=== PATIENT | male | born 1985 | race African-American/Black ===

== ENCOUNTER 2016-11-17 17:03 | Inpatient (IN) | payer MEDICAID ==
[~2016-11-17] VITALS: Ht 193 cm; Wt 92.1 kg
[2016-11-17] MEDS ORDERED: ACETAMINOPHEN 325MG TABLET PO STA (17:29)
[2016-11-17] MEDS ORDERED: SODIUM CHLORIDE 0.9% 1000ML BAG (SEPSIS BOLUS) IV ONE (17:30)
[2016-11-17 18:26] LABS: CLARITY URINE TURBID (CLEAR); COLOR URINE ORANGE (YELLOW); GLUCOSE URINE TRACE (NEGATIVE); KETONES URINE NEGATIVE (NEGATIVE); LEUKOCYTE ESTERASE URINE 1+ (NEGATIVE); NITRITE URINE POSITIVE (NEGATIVE); OCCULT BLOOD URINE 3+ (NEGATIVE); PROTEIN URINE 3+ (NEGATIVE); SPECIFIC GRAVITY URINE 1.031 (1.005-1.030); UROBILINOGEN URINE 0.2 E.U./dL (0.2-1.0)
[2016-11-17] MEDS ORDERED: CEFTRIAXONE 1 G PREMIX 50 ML IV ONE (19:00)
[2016-11-17 19:18] LABS: CHLORIDE 95 mEq/L (98-107); INR 2.5; PROTHROMBIN TIME 26.3 sec
[2016-11-17 19:22] LABS: HEMATOCRIT. 46.9 % (42.0-52.0); HEMOGLOBIN. 16.1 g/dL (14.0-18.0); MEAN CORPUSCULAR HEMOGLOBIN 30.6 pg (28.0-32.0); MEAN CORPUSCULAR VOLUME 89.4 fL (80.0-94.0); MEAN PLATELET VOLUME 11.2 fl (7.4-10.4); PLATELET 125 x1000/uL (130-400); RED BLOOD CELL COUNT 5.25 mill/uL (4.7-6.1); RED CELL DISTRIBUTION WIDTH 14.1 % (11.6-14.6)
[2016-11-17 19:23] LABS: CARBON DIOXIDE 24 mEq/L (21-32)
[2016-11-17 20:00] LABS: PLATELET ESTIMATE SLIGHTLY DECREASED
[2016-11-17] MEDS ORDERED: ONDANSETRON HCL 4MG/2ML VIAL IV ONE (20:00)
[2016-11-17] MEDS ORDERED: ACETAMINOPHEN 325MG TABLET PO ONE (20:45)
[2016-11-17 23:02] VITALS: BP 125/80
[2016-11-18] VITALS (7 sets, daily range): BP systolic 104–141; BP diastolic 59–80
[2016-11-18] MEDS ORDERED: ONDANSETRON HCL 4MG/2ML VIAL IV PRN (02:00)
[2016-11-18] MEDS: SODIUM CHLORIDE 0.9% 1,000 ML IV SCH ×3 (03:24→18:27)
[2016-11-18] MEDS: MORPHINE SULFATE 2 MG/ML CPJ (NOT FOR IM USE) IV PRN ×3 (03:35→20:36)
[2016-11-18] MEDS: METRONIDAZOLE 500 MG PREMIX 100 ML IV SCH ×3 (03:36→18:28)
[2016-11-18] MEDS: LEVOFLOXACIN 500MG PREMIX 100 ML IV SCH (04:35)
[2016-11-18 06:00] LABS: HEMATOCRIT. 45.9 % (42.0-52.0); HEMOGLOBIN. 15.8 g/dL (14.0-18.0); MEAN CORPUSCULAR HEMOGLOBIN 30.7 pg (28.0-32.0); MEAN CORPUSCULAR VOLUME 89.2 fL (80.0-94.0); MEAN PLATELET VOLUME 11.8 fl (7.4-10.4); PLATELET 106 x1000/uL (130-400); RED BLOOD CELL COUNT 5.15 mill/uL (4.7-6.1); RED CELL DISTRIBUTION WIDTH 13.9 % (11.6-14.6)
[2016-11-18] MEDS ORDERED: POTASSIUM CHLORIDE 20MEQ TABLET SR PO NR (08:00)
[2016-11-18] MEDS: ACETAMINOPHEN 325MG TABLET PO PRN (08:31)
[2016-11-18] MEDS: PANTOPRAZOLE SODIUM 40 MG/VIAL IV SCH (08:31)
[2016-11-18] MEDS: CEFEPIME 1,000 MG in DEXTROSE 5% WATER 50 ML IV SCH (11:18)
[2016-11-18 11:31] LABS: HEPATITIS B SURFACE ANTIGEN NEGATIVE
[2016-11-18 12:00] LABS: HEPATITIS B CORE AB IGM NEGATIVE
[2016-11-18 12:01] LABS: HEPATITIS A AB IGM NEGATIVE (NEGATIVE)
[2016-11-18 12:55] LABS: CREATINE KINASE 2919 IU/L (39-308)
[2016-11-18 13:31] LABS: PLATELET ESTIMATE SLIGHTLY DECREASED
[2016-11-18] MEDS ORDERED: CEFEPIME HCL 1000MG/VIAL INJ IM SCH (21:00)
[2016-11-18] MEDS: METOCLOPRAMIDE HCL 10MG/2ML VIAL IV PRN (23:12)
[2016-11-19] VITALS (13 sets, daily range): BP systolic 113–153; BP diastolic 45–100
[2016-11-19] MEDS ORDERED: ONDANSETRON HCL 4MG/2ML VIAL IV PRN
[2016-11-19] MEDS: CEFEPIME 1,000 MG in DEXTROSE 5% WATER 50 ML IV SCH ×3 (00:12→23:01)
[2016-11-19] MEDS: SODIUM CHLORIDE 0.9% 1,000 ML IV SCH ×3 (01:38→18:00)
[2016-11-19] MEDS: METRONIDAZOLE 500 MG PREMIX 100 ML IV SCH ×3 (02:37→18:55)
[2016-11-19] MEDS: LEVOFLOXACIN 500MG PREMIX 100 ML IV SCH (03:47)
[2016-11-19] MEDS: MORPHINE SULFATE 2 MG/ML CPJ (NOT FOR IM USE) IV PRN ×2 (08:08→20:20)
[2016-11-19] MEDS: PANTOPRAZOLE SODIUM 40 MG/VIAL IV SCH (08:08)
[2016-11-19 08:49] LABS: HEMOGLOBIN. 13.3 g/dL (14.0-18.0); MEAN CORPUSCULAR HEMOGLOBIN 30.3 pg (28.0-32.0); MEAN CORPUSCULAR VOLUME 89.1 fL (80.0-94.0); MEAN PLATELET VOLUME 12.2 fl (7.4-10.4); PLATELET 97 x1000/uL (130-400); RED BLOOD CELL COUNT 4.38 mill/uL (4.7-6.1); RED CELL DISTRIBUTION WIDTH 14.1 % (11.6-14.6)
[2016-11-19 09:02] LABS: CHLORIDE 99 mEq/L (98-107)
[2016-11-19 09:15] LABS: CARBON DIOXIDE 25 mEq/L (21-32)
[2016-11-19 10:14] LABS: PLATELET ESTIMATE DECREASED
[2016-11-19] MEDS: ACETAMINOPHEN 325MG TABLET PO PRN (11:33)
[2016-11-19] MEDS ORDERED: POTASSIUM CHLORIDE 20MEQ TABLET SR PO SCH (15:45)
[2016-11-20] VITALS (12 sets, daily range): BP systolic 95–158; BP diastolic 41–90
[2016-11-20] MEDS: LEVOFLOXACIN 500MG PREMIX 100 ML IV SCH (02:17)
[2016-11-20] MEDS: METRONIDAZOLE 500 MG PREMIX 100 ML IV SCH ×3 (03:14→19:00)
[2016-11-20] MEDS: SODIUM CHLORIDE 0.9% 1,000 ML IV SCH ×2 (05:10→15:45)
[2016-11-20 05:17] LABS: INR 1.2; PARTIAL THROMBOPLASTIN TIME 28.9 sec (24.0-34.0); PROTHROMBIN TIME 12.9 sec
[2016-11-20 05:32] LABS: BASOPHILS % 0.6 % (0.0-2.0); EOSINOPHILS % 4.2 % (0.0-5.0); HEMATOCRIT. 37.5 % (42.0-52.0); HEMOGLOBIN. 12.9 g/dL (14.0-18.0); LYMPHOCYTES % 13.4 % (20.0-50.0); MEAN CORPUSCULAR HEMOGLOBIN 30.6 pg (28.0-32.0); MEAN CORPUSCULAR VOLUME 88.7 fL (80.0-94.0); MEAN PLATELET VOLUME 12.4 fl (7.4-10.4); NEUTROPHILS % 73.8 % (40.0-76.0); PLATELET 112 x1000/uL (130-400); RED BLOOD CELL COUNT 4.23 mill/uL (4.7-6.1); RED CELL DISTRIBUTION WIDTH 14.4 % (11.6-14.6)
[2016-11-20 06:28] LABS: CARBON DIOXIDE 29 mEq/L (21-32); CHLORIDE 99 mEq/L (98-107)
[2016-11-20 06:55] LABS: CREATINE KINASE 1316 IU/L (39-308)
[2016-11-20] MEDS: PANTOPRAZOLE SODIUM 40 MG/VIAL IV SCH (08:31)
[2016-11-20] MEDS: METOCLOPRAMIDE HCL 10MG/2ML VIAL IV PRN (10:23)
[2016-11-20 11:50] LABS: *AMPHETAMINES SCREEN URINE NEGATIVE (NEGATIVE); *BARBITURATES SCREEN URINE NEGATIVE (NEGATIVE); *BENZODIAZEPINES SCREEN URINE NEGATIVE (NEGATIVE); *COCAINE SCREEN URINE NEGATIVE (NEGATIVE); CANNABINOID URINE SCREEN PRESUMTIVE POSITIVE (NEGATIVE); METHADONE URINE SCREEN NEGATIVE (NEGATIVE); OPIATES URINE SCREEN PRESUMTIVE POSITIVE (NEGATIVE); PHENCYCLIDINE URINE SCREEN NEGATIVE (NEGATIVE)
[2016-11-20] MEDS: CEFEPIME 1,000 MG in DEXTROSE 5% WATER 50 ML IV SCH ×2 (12:29→23:56)
[2016-11-21] VITALS (11 sets, daily range): BP systolic 114–157; BP diastolic 54–97
[2016-11-21] MEDS: LEVOFLOXACIN 500MG PREMIX 100 ML IV SCH (03:27)
[2016-11-21] MEDS: SODIUM CHLORIDE 0.9% 1,000 ML IV SCH ×2 (03:33→11:11)
[2016-11-21] MEDS: METRONIDAZOLE 500 MG PREMIX 100 ML IV SCH ×2 (04:04→11:13)
[2016-11-21 06:44] LABS: HEMATOCRIT. 36.3 % (42.0-52.0); HEMOGLOBIN. 12.4 g/dL (14.0-18.0); MEAN CORPUSCULAR HEMOGLOBIN 30.6 pg (28.0-32.0); MEAN CORPUSCULAR VOLUME 89.6 fL (80.0-94.0); MEAN PLATELET VOLUME 11.5 fl (7.4-10.4); PLATELET 155 x1000/uL (130-400); RED BLOOD CELL COUNT 4.05 mill/uL (4.7-6.1); RED CELL DISTRIBUTION WIDTH 14.3 % (11.6-14.6)
[2016-11-21 06:56] LABS: CARBON DIOXIDE 30 mEq/L (21-32); CHLORIDE 99 mEq/L (98-107)
[2016-11-21] MEDS: FAMOTIDINE 20MG TABLET PO SCH ×2 (09:15→17:19)
[2016-11-21] MEDS: NYSTATIN POWDER 15GM TOP SCH ×3 (11:13→17:19)
[2016-11-21 11:53] LABS: PLATELET ESTIMATE NORMAL
[2016-11-21] MEDS: CEFEPIME 1,000 MG in DEXTROSE 5% WATER 50 ML IV SCH (12:51)
[2016-11-21] MEDS ORDERED: NYST15OI TP (16:33)
[2016-11-22 17:07] LABS: ANTI-NUCLEAR ANTIBODIES DIRECT Negative (Negative)
[2016-11-24 06:24] LABS: CHLAMYDIA TRACHOMATIS NAA Negative (Negative); NEISSERIA GONORRHOEAE NAA Negative (Negative)
[2016-11-25 13:09] LABS: COMPLEMENT C3 141 mg/dL (82-167)
== END 2016-11-21 18:35 | disposition home or self-care (01) | DRG 720 ==
LOC: ER 17:44 → 8WST 20:21 → ENRESERV 21:55 → 5EST 11-18 12:25
PROVIDERS: ADMIT Internal Medicine; ATTEND Internal Medicine
DX: A41.9 Sepsis, unspecified organism (principal); N17.0 Acute kidney failure with tubular necrosis; E87.2 Acidosis; E87.1 Hypo-osmolality and hyponatremia; M62.82 Rhabdomyolysis; D69.6 Thrombocytopenia, unspecified; R16.0 Hepatomegaly, not elsewhere classified; N50.89 Other specified disorders of the male genital organs; K52.9 Noninfective gastroenteritis and colitis, unspecified; E87.8 Other disorders of electrolyte and fluid balance, not elsewhere classified; R74.0 Nonspecific elevation of levels of transaminase and lactic acid dehydrogenase [LDH]; N30.00 Acute cystitis without hematuria; E87.6 Hypokalemia; E86.0 Dehydration; Z83.3 Family history of diabetes mellitus; Z82.49 Family history of ischemic heart disease and other diseases of the circulatory system; Z80.0 Family history of malignant neoplasm of digestive organs; Z87.891 Personal history of nicotine dependence
CPT/HCPCS: 36415; 71010; 74176; 76700; 76870; 80048; 80053; 80061; 80076; 80305; 81001; 82550; 83605; 84145; 84443; 85025; 85610; 85730; 86038; 86160; 86705; 86709; 86803; 87040; 87086; 87186; 87340; 87491; 87493; 87591; 93005; 93970; 93976; 96365; 96375; 97162; 99291; C9113; J0692; J0696; J1956; J2270; J2405; J2765; J3490; J7030; J7060